=== PATIENT | female | born 1990 | race Caucasian/White ===

== ENCOUNTER 2021-05-03 12:19 | Emergency (ER) | payer OTHER, SELFPAY ==
[2021-05-03 12:19] VITALS: BP 113/70; PULSE 102; RESP 20; TEMP 36.9; O2SAT 100; BMI 31.9
--- NOTE | 2021-05-03 13:25 | RAD_ITS ---
STUDY: X-RAY CHEST REASON FOR EXAM: Female, 30 years old. Persistent cough. Body aches and headaches. Patient is 16 weeks prior. TECHNIQUE: Single AP portable view of the chest. COMPARISON: None. FINDINGS: Patchy bibasilar infiltrates worse in the left hemithorax. There is no demonstrated pleural abnormality. Normal size heart. Normal mediastinum and roberto. Normal visualized pulmonary arteries. Normal visualized aortic arch and descending thoracic aorta. Normal visualized thoracic spine. Normal visualized ribs, clavicles, and shoulders. There is no demonstrated abnormality of the visualized soft tissue structures of the upper abdomen. RAD/Chest 1 View IMPRESSION: Patchy bilateral pulmonary infiltrates worse in the left hemithorax. Electronically Signed: Robles Garrison MD at 13:59 EDT , Service support ,
[2021-05-03 14:40] VITALS: O2SAT 98
--- NOTE | 2021-05-03 15:22 | EX.ED.DYSGE1 ---
HPI History of Present Illness Chief Complaint: Cough Informant: patient Narrative Narrative: Patient is a 30-year-old female currently approximately 16 weeks gestation presenting with fever, cough and abdominal discomfort. Patient states she is been coughing so much that her stomach was starting to hurt. She is also concerned she is dehydrated. She notes she currently feels better and is drinking water in the room. She started having symptoms on Saturday, 4 days ago. She not been taking anything for her symptoms. She has not been around anyone that been sick that she is aware of. She has not had her Covid vaccine. She has not been seen by a clinical support specialist or [facility] yet. She currently denies any symptoms and states she is feeling better. PFSH PFSH Medical History no medical history Home Medications ondansetron HCl [Zofran] 4 mg PO Q8H PRN #14 tab 05/03/21 [Rx Last Taken Unknown] Allergy/AdvReac Type Severity Reaction Status Date / Time No Known Allergies Allergy Verified 05/03/21 12:23 Surgical History History of repair of hiatal hernia Social History Smoking Status: Never smoker ROS ROS ED Constitutional Constitutional ED: Reports chills and fever(s) Eyes Eyes: Denies change in vision ENT ENT ED: Denies ear pain, rhinorrhea or sore throat Cardiovascular Cardiovascular: Denies chest pain Respiratory/Chest Respiratory/Chest: Reports cough and dyspnea Gastrointestinal Gastrointestinal: Reports abdominal pain; Denies diarrhea, nausea or vomiting Genitourinary Genitourinary ED: Denies dysuria or hematuria Musculoskeletal Musculoskeletal: Reports myalgias; Denies arthralgias Integumentary Denies rash Neurologic Neurologic: Reports headache(s); Denies weakness EXAM Physical Exam Const Vital Signs: 05/03/21 12:19 05/03/21 14:14 Temperature 98.4 F Temperature Source Temporal Pulse Rate 102 H Respiratory Rate 20 H Respiratory Effort Normal Non-Labored Respiratory Depth Normal Respiratory Pattern Normal Blood Pressure 113/70 Blood Pressure Mean 84 Pulse Ox 100 Oxygen Delivery Method Room Air Positive well nourished and well developed General Appearance ED: well developed HEENT Reports TM's clear and moist mucous membranes Tympanic Membrane ED: Yes TM's clear Eyes PERRL and EOMs intact bilaterally Neck supple Chest Wall inspection of chest normal Resp normal respiratory effort Auscultation: diminished lung sounds Cardio regular rate, regular rhythm and no murmurs GI normal to inspection, nondistended, normoactive bowel sounds and non-tender GI Narrative: Uterine fundus palpated just above the pubic bone Back/Spine no CVA tenderness Neuro oriented x3 Sensorium / Orientation: alert Motor Exam: Negative for general weakness Psych mental status grossly normal Skin no rashes or lesions noted and no wounds MDM MDM MDM Narrative Medical decision making narrative: Patient is evaluated for 4 days of Covid-like symptoms. She ultimately test positive for Covid. X-ray shows multifocal infiltrate. She is otherwise well-appearing. She is concerned about dehydration so she is given a 500 cc fluid bolus however clinically she does not appear dehydrated. She is not hypoxic and is ambulated in the emergency room. Bedside ultrasound performed by myself shows a single intrauterine uterine gestation with a heart rate calculated at 158 bpm. She is not having any vaginal bleeding, leakage of fluid or other symptoms associated with her . Patient is instructed to take Tylenol as needed for fever and chills. Patient will be referred to monoclonal antibody as she is . Lab Data Attestation: I reviewed the patient's lab results. Radiography Chest X-Ray - ED: 1 View, Read by ED Physician, Read by Radiologist, Right Infiltrate and Left Infiltrate Diagnostic Testing: Clinical Impression(s) from Imaging Studies Chest X-Ray 05/03/21 13:25 IMPRESSION: Patchy bilateral pulmonary infiltrates worse in the left hemithorax. Electronically Signed: Robles Garrison MD at 13:59 EDT , Service support , Discharge Plan Triage Chief Complaint: Cough ED Provider: Hillary House Dx/Rx/DC Orders Clinical Impression: COVID, Instructions: Coronavirus Disease 2019 (COVID-19): Caring for Yourself or Others Prescriptions: New ondansetron HCl [Zofran] 4 mg tablet 4 mg PO Q8H PRN (Reason: nausea and vomiting) Qty: 14 RF: 0 Other Ambulatory Orders: COVID Outpatient Monoclonal Antibody Referral (Routine) Timeframe: 1 Day Facility: [facility] Location: [facility] Ordered By: Dr. Hillary House Primary Care Provider: Jose Smith Referrals: Jose Smith DO [Primary Care Provider] - Activity Restrictions/Additional Instructions: Take [id number] Tylenol as needed for your symptoms. You will be prescribed Zofran to help with your nausea. Disposition Disposition: Home, Self Care
[2021-05-03 15:43] VITALS: BP 111/60; PULSE 95; RESP 18; O2SAT 97
== END 2021-05-03 15:44 | disposition home or self-care (01) ==
PROVIDERS: Emergency Provider Emergency Medicine; PCP Family Medicine
DX: O98.512 Other viral diseases complicating pregnancy, second trimester (principal); U07.1 COVID-19; Z3A.16 16 weeks gestation of pregnancy
CPT/HCPCS: 71045; 87426; 99283; J7040